=== PATIENT | male | born 1960 | race Caucasian/White ===

== ENCOUNTER 2017-04-04 02:33 | Inpatient (IN) | payer BC ==
[~2017-04-04] VITALS: Ht 160 cm; Wt 70.9 kg
[2017-04-04] MEDS ORDERED: ONDANSETRON INJ 2 MG/ML 2 ML VIAL IV STA (02:52)
[2017-04-04] MEDS ORDERED: SODIUM CHLORIDE 0.9% 1000ML 1,000 ML IV STA (02:52)
[2017-04-04] MEDS ORDERED: MoRPHine SULFATE 10 MG/ML CARP/VIAL IV STA (02:52)
--- NOTE | 2017-04-04 02:57 | EMERGENCY ROOM VISIT NOTE ---
History First contact with patient: 02:46 Chief Complaint: FLANK PAIN Stated Complaint: LWR RIGHT BACK PAIN,VOMITING,NAUSEA,FEELING WARM History of Present Illness The patient is a 56 year old male who presents to the Emergency Room with complaints of right flank pain and vomiting. The patient states that he had a sudden onset of right flank pain with radiation into the abdomen which started 2 hours ago and woke him up from sleep. He has had 3 episodes of vomiting. He denies urinary symptoms. He rates his discomfort a 10/10. He has not taken any medication for the discomfort. He denies any history of kidney stones. He denies changes in bowel movements, chest pain or shortness of breath. Review of Systems A complete 10 point review of systems was reviewed with the patient with pertinent positives and negatives as per history of present illness. All else were negative. Past Medical/Surgical History Medical Problems: (1) Ureteral calculus Social History Smoking Status: Never Smoker Physical Exam Vital Signs Date Time Temp Pulse Resp B/P (MAP) Pulse Ox O2 Delivery O2 Flow Rate FiO2 04/04/17 04:38 96 Nasal Cannula 2.0 04/04/17 04:36 90 04/04/17 04:20 72 20 109/64 94 Room Air 04/04/17 04:20 109/64 04/04/17 04:18 74 90 04/04/17 04:03 68 96 04/04/17 03:48 58 94 04/04/17 03:33 63 94 04/04/17 03:22 62 22 129/71 94 04/04/17 03:22 129/71 04/04/17 02:54 36.4 04/04/17 02:41 50 20 185/104 99 Room Air Physical Exam VITALS: Vitals are noted on the nurse's note and reviewed by myself. Vital signs stable. GENERAL: This is a 56-year-old male, in no acute distress, nondiaphoretic, well- developed well-nourished. HEART: Regular rate and rhythm without murmurs gallops or rubs. LUNGS: Clear to auscultation bilaterally without wheezes, rales or rhonchi. ABDOMEN: Positive bowel sounds x 4. Soft, tenderness in the right mid and lower abdomen. No guarding or rebound tenderness. MUSCULOSKELETAL: Right CVA tenderness. NEURO: Patient was alert and oriented to person place and time. Medical Decision & Procedures ER Provider Diagnostic Interpretation: CT ABDOMEN & PELVIS: Obstructing 4 mm stone in the mid right ureter causing mild upstream hydroureteronephrosis. Additional nonobstructing bilateral nephrolithiasis. No bowel obstruction, appendicitis, or diverticulitis. Radiologist: Guerita Godwin MD Laboratory Results 04/04/17 03:43 Red Blood Count 4.40, Mean Corpuscular Volume 90.2, Mean Corpuscular Hemoglobin 30.9, Mean Corpuscular Hemoglobin Concent 34.3, Mean Platelet Volume 9.6, Neutrophils (%) (Auto) 71.0, Lymphocytes (%) (Auto) 20.3, Monocytes (%) (Auto) 7.7, Eosinophils (%) (Auto) 0.5, Basophils (%) (Auto) 0.2, Neutrophils # (Auto) 6.19, Lymphocytes # (Auto) 1.77, Monocytes # (Auto) 0.67, Eosinophils # (Auto) 0.04, Basophils # (Auto) 0.02 04/04/17 03:43 Test 04/04/17 03:15 04/04/17 03:43 Urine Color DK YELLOW Urine Appearance CLEAR (CLEAR) Urine pH 7.5 (4.5-7.5) Urine Specific [place] 1.016 (1.000-1.030) Urine Protein NEG (NEG) Urine Glucose (UA) NEG (NEG) Urine Ketones NEG (NEG) Urine Occult Blood 2+ (NEG) Urine Nitrite NEG (NEG) Urine Bilirubin NEG (NEG) Urine Urobilinogen NEG (NEG) Urine Leukocyte Esterase NEG (NEG) Urine WBC (Auto) 0 /hpf (0-5) Urine RBC (Auto) 10-30 /hpf (0-4) Urine Hyaline Casts (Auto) 0 /lpf (0-5) Urine Epithelial Cells (Auto) 0-5 /lpf (0-5) Urine Bacteria (Auto) NEG (NEG) White Blood Count 8.72 K/uL (4.8-10.8) Red Blood Count 4.40 M/uL (4.7-6.1) Hemoglobin 13.6 g/dL (14.0-18.0) Hematocrit 39.7 % (42-52) Mean Corpuscular Volume 90.2 fL (80-100) Mean Corpuscular Hemoglobin 30.9 pg (25-34) Mean Corpuscular Hemoglobin Concent 34.3 g/dl (32-36) Platelet Count 173 K/uL (130-400) Mean Platelet Volume 9.6 fL (7.4-10.4) Neutrophils (%) (Auto) 71.0 % Lymphocytes (%) (Auto) 20.3 % Monocytes (%) (Auto) 7.7 % Eosinophils (%) (Auto) 0.5 % Basophils (%) (Auto) 0.2 % Neutrophils # (Auto) 6.19 K/uL (1.4-6.5) Lymphocytes # (Auto) 1.77 K/uL (1.2-3.4) Monocytes # (Auto) 0.67 K/uL (0.11-0.59) Eosinophils # (Auto) 0.04 K/uL (0-0.5) Basophils # (Auto) 0.02 K/uL (0-0.2) RDW Standard Deviation 43.4 fL (36.4-46.3) RDW Coefficient of Variation 13.2 % (11.5-14.5) Immature Granulocyte % (Auto) 0.3 % Immature Granulocyte # (Auto) 0.03 K/uL (0.00-0.02) Anion Gap 6.0 mmol/L (3-11) Est Creatinine Clear Calc Drug Dose 59.3 ml/min Estimated GFR () 76.8 Estimated GFR (Non- 66.3 BUN/Creatinine Ratio 10.1 (10-20) Calcium Level 7.5 mg/dl (8.5-10.1) Total Bilirubin 0.5 mg/dl (0.2-1) Aspartate Amino Transf (AST/SGOT) 14 U/L (15-37) Alanine Aminotransferase (ALT/SGPT) 31 U/L (12-78) Alkaline Phosphatase 65 U/L (45-117) Total Protein 6.0 gm/dl (6.4-8.2) Albumin 3.4 gm/dl (3.4-5.0) Globulin 2.6 gm/dl (2.5-4.0) Albumin/Globulin Ratio 1.3 (0.9-2) Medications Administered Medications (Trade) Dose Ordered Sig/Justus Route Start Time Stop Time Status Last Admin Dose Admin Sodium Chloride 1,000 ml @ 999 mls/hr Q1H1M STAT IV 04/04/17 02:52 04/04/17 03:52 DC 04/04/17 03:07 999 MLS/HR Ondansetron HCl (Zofran Inj) 4 mg NOW STAT IV 04/04/17 02:52 04/04/17 02:54 DC 04/04/17 03:13 4 MG Morphine Sulfate (MoRPHine SULFATE INJ) 6 mg NOW STAT IV 04/04/17 02:52 04/04/17 02:55 DC 04/04/17 03:10 6 MG Hydromorphone HCl (Dilaudid Inj) 1 mg NOW STAT IV 04/04/17 04:04 04/04/17 04:05 DC 04/04/17 04:10 1 MG ED Course The patient was evaluated as above. Labs were drawn and IV access was obtained. Patient was medicated with 6 mg morphine IV, 4 mg Zofran IV, and 1 L normal saline solution. Patient was having continued discomfort and was medicated with [address] of the abdomen and pelvis was performed and read by leah as above. Patient was reevaluated and findings were discussed. He is having continued pain rated 5/10. He was offered admission/observation for pain control vs discharge home. He does not feel comfortable going home due to his pain. Case was discussed with the [facility], Dr. Sommers. He agreed to evaluate the patient. Medical Decision Differential diagnosis includes kidney stone, pyelonephritis, gastroenteritis, among others. The patient is a 56-year-old female who presents today complaining of right flank pain and vomiting. Labs revealed no leukocytosis. Calcium is low at 7.5. Kidney functions within normal limits. Urinalysis was not suggestive of infection. CT shows a 4 mm obstructing stone. The patient was treated with morphine and Dilaudid and reported continued pain. The patient became slightly hypoxic after the dose of Dilaudid and I was not comfortable providing him with any further narcotic medication at this time. He was not given Toradol in case urologic intervention would be needed. The patient was offered admission for pain control versus discharge home with prescriptions for pain medication and he did not feel that he would be comfortable going home with the amount of pain that he is currently. For this reason, the patient was admitted to the [facility] service. Medication Reconcilliation Current Medication List: was personally reviewed by me Blood Pressure Screening Patient's blood pressure: Elevated blood pressure Blood pressure disposition: Elevated BP felt to be situational Impression Primary Impression: Right ureteral calculus Departure Information Referrals No Doctor, Assigned (PCP) Patient Instructions [facility]
[2017-04-04 03:27] LABS: URINE APPEARANCE CLEAR (CLEAR); URINE BILIRUBIN NEG (NEG); URINE COLOR DK YELLOW; URINE EPITHELIAL CELL AUTO 0-5 /lpf (0-5); URINE NITRITE NEG (NEG); URINE PH 7.5 (4.5-7.5); URINE SPECIFIC GRAVITY 1.016 (1.000-1.030); UROBILINOGEN NEG (NEG); ZZUR CULT IF INDIC CLEAN CATCH NO
[2017-04-04 03:41] LABS: MANUAL MICROSCOPIC REQUIRED? NO; REVIEW REQ? NO
[2017-04-04] MEDS ORDERED: HYDROmorphone INJ 1 MG/ML SYR IV STA (04:04)
[2017-04-04 04:05] LABS: BASO % 0.2 %; BASO ABS # 0.02 K/uL (0-0.2); COMPLETE YES; EOS % 0.5 %; HEMATOCRIT 39.7 % (42-52); IG% 0.3 %; LYMPH % 20.3 %; LYMPH ABS # 1.77 K/uL (1.2-3.4); MEAN CELL VOLUME 90.2 fL (80-100); MEAN CORPUSCULAR HEMOGLOBIN 30.9 pg (25-34); MEAN CORPUSCULAR HGB CONC 34.3 g/dl (32-36); MEAN PLATELET VOLUME 9.6 fL (7.4-10.4); MONO % 7.7 %; PLATELET COUNT 173 K/uL (130-400); WHITE BLOOD COUNT 8.72 K/uL (4.8-10.8)
[2017-04-04 04:24] LABS: BUN/CREATININE RATIO 10.1 (10-20); CALCIUM 7.5 mg/dl (8.5-10.1); CREATININE 1.2 mg/dl (0.60-1.40); POTASSIUM 3.4 mmol/L (3.5-5.1)
[2017-04-04 04:27] LABS: ALB/GLOB RATIO 1.3 (0.9-2)
[2017-04-04] MEDS ORDERED: ALUMINUM/MAGNESIUM/SIMETH (MAALOX MAX) 30 ML UDC PO PRN (06:15)
[2017-04-04] MEDS ORDERED: ONDANSETRON INJ 2 MG/ML 2 ML VIAL IV PRN (06:15)
[2017-04-04] MEDS ORDERED: MAGNESIUM HYDROXIDE SUSP 30 ML UDC PO PRN (06:15)
[2017-04-04] MEDS ORDERED: ACETAMINOPHEN 325 MG TAB PO PRN (06:15)
--- NOTE | 2017-04-04 06:22 | History and Physical ---
History & Physical Date & Time of Service: Apr 04, 2017 at 06:20 Chief Complaint: Lwr Right Back Pain,Vomiting,Nausea,Feeling Warm Primary Care Physician: Chencho Posey M.D. History of Present Illness Source: patient 56 y/o M Hx UC, GERD - developed acute and progressively severe R flank pain. Denies dysuria, fevers or rigors. On arrival to ER a CT was obtained revealing a 4mm obstructive stone in the mid R ureter with resultant hydroureteronephrosis. Past Medical/Surgical History 1) UC 2) GERD Family History Mother owing to CHF Social History Does not drink or smoke - retired from [employer] Smoking Status: Never Smoker Multi-Drug Resistant Organisms History of MDRO: No Allergies Uncoded Allergies: BEE STING (Allergy, Unknown, 02/29/04) CLINDAMYCIN (Allergy, Unknown, RASH/HIVES, 02/29/04) Review of Systems Constitutional: No fever, No chills, No sweats Eyes: No worsening of vision ENT: + hearing loss (chronic), No unusual epistaxis, No nasal symptoms Respiratory: No cough, No sputum, No wheezing Cardiovascular: No chest pain, No orthopnea, No PND Abdomen: + pain, No nausea, No vomiting Musculoskeletal: No joint pain, No muscle pain Genitourinary - Male: + hematuria, + problem reported (R flank pain), No dysuria Neurologic: No memory loss, No paralysis, No weakness Psychiatric: No depression symptoms Endocrine: No fatigue Hematologic / Lymphatic: No abnormal bleeding/bruising Integumentary: No rash Physical Exam Vital Signs Date Time Temp Pulse Resp B/P (MAP) Pulse Ox O2 Delivery O2 Flow Rate FiO2 04/04/17 04:38 96 Nasal Cannula 2.0 04/04/17 04:36 90 04/04/17 04:20 72 20 109/64 94 Room Air 04/04/17 04:20 109/64 04/04/17 04:18 74 90 04/04/17 04:03 68 96 04/04/17 03:48 58 94 04/04/17 03:33 63 94 04/04/17 03:22 62 22 129/71 94 04/04/17 03:22 129/71 04/04/17 02:54 36.4 04/04/17 02:41 50 20 185/104 99 Room Air General Appearance: WD/WN, no apparent distress Head: normocephalic Eyes: normal inspection ENT: normal ENT inspection, pharynx normal Neck: supple, no JVD Respiratory/Chest: chest non-tender, lungs clear, normal breath sounds, no respiratory distress, no accessory muscle use Cardiovascular: regular rate, rhythm, no edema, no gallop, no JVD, no murmur, normal peripheral pulses Abdomen/GI: normal bowel sounds, + pertinent finding (R lat abdominal and flank pain) Back: + right CVA tenderness Extremities/Musculoskelatal: normal inspection, no calf tenderness, normal capillary refill 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, no motor/sensory deficits, alert, normal mood/affect, normal reflexes, oriented x 3 Skin: normal color, warm/dry, no rash Diagnostics Laboratory Results Results Past 24 Hours Test 04/04/17 03:15 04/04/17 03:43 Range/Units Urine Color DK YELLOW Urine Appearance CLEAR CLEAR Urine pH 7.5 4.5-7.5 Urine Specific [place] 1.016 1.000-1.030 Urine Protein NEG NEG Urine Glucose (UA) NEG NEG Urine Ketones NEG NEG Urine Occult Blood 2+ NEG Urine Nitrite NEG NEG Urine Bilirubin NEG NEG Urine Urobilinogen NEG NEG Urine Leukocyte Esterase NEG NEG Urine WBC (Auto) 0 0-5 /hpf Urine RBC (Auto) 10-30 0-4 /hpf Urine Hyaline Casts (Auto) 0 0-5 /lpf Urine Epithelial Cells (Auto) 0-5 0-5 /lpf Urine Bacteria (Auto) NEG NEG White Blood Count 8.72 4.8-10.8 K/uL Red Blood Count 4.40 4.7-6.1 M/uL Hemoglobin 13.6 14.0-18.0 g/dL Hematocrit 39.7 42-52 % Mean Corpuscular Volume 90.2 80-100 fL Mean Corpuscular Hemoglobin 30.9 25-34 pg Mean Corpuscular Hemoglobin Concent 34.3 32-36 g/dl Platelet Count 173 130-400 K/uL Mean Platelet Volume 9.6 7.4-10.4 fL Neutrophils (%) (Auto) 71.0 % Lymphocytes (%) (Auto) 20.3 % Monocytes (%) (Auto) 7.7 % Eosinophils (%) (Auto) 0.5 % Basophils (%) (Auto) 0.2 % Neutrophils # (Auto) 6.19 1.4-6.5 K/uL Lymphocytes # (Auto) 1.77 1.2-3.4 K/uL Monocytes # (Auto) 0.67 0.11-0.59 K/uL Eosinophils # (Auto) 0.04 0-0.5 K/uL Basophils # (Auto) 0.02 0-0.2 K/uL RDW Standard Deviation 43.4 36.4-46.3 fL RDW Coefficient of Variation 13.2 11.5-14.5 % Immature Granulocyte % (Auto) 0.3 % Immature Granulocyte # (Auto) 0.03 0.00-0.02 K/uL Sodium Level 146 136-145 mmol/L Potassium Level 3.4 3.5-5.1 mmol/L Chloride Level 116 98-107 mmol/L Carbon Dioxide Level 24 21-32 mmol/L Anion Gap 6.0 3-11 mmol/L Blood Urea Nitrogen 12 7-18 mg/dl Creatinine 1.20 0.60-1.40 mg/dl Est Creatinine Clear Calc Drug Dose 59.3 ml/min Estimated GFR () 76.8 Estimated GFR (Non- 66.3 BUN/Creatinine Ratio 10.1 10-20 Random Glucose 121 70-99 mg/dl Calcium Level 7.5 8.5-10.1 mg/dl Total Bilirubin 0.5 0.2-1 mg/dl Aspartate Amino Transf (AST/SGOT) 14 15-37 U/L Alanine Aminotransferase (ALT/SGPT) 31 12-78 U/L Alkaline Phosphatase 65 45-117 U/L Total Protein 6.0 6.4-8.2 gm/dl Albumin 3.4 3.4-5.0 gm/dl Globulin 2.6 2.5-4.0 gm/dl Albumin/Globulin Ratio 1.3 0.9-2 Diagnostic Radiology Obstructing 4mm stone mid R ureter - resultant mild hydroureteronephrosis Impression Assessment and Plan 56 y/o M Hx UC, GERD - developed acute and progressively severe R flank pain. Denies dysuria, fevers or rigors. On arrival to ER a CT was obtained revealing a 4mm obstructive stone in the mid R ureter with resultant hydroureteronephrosis. 1) Obstructing calculus - pain control, IVF, urology consult 2) UC - can resume Sulfasalazine following urology eval if no intervention is to take place 3) GERD - cont Omeprazole Full code - SCDs Total time for this admit including review of labs, meds, imaging - discussion with pt and ER attending - 33 min VTE Prophylaxis VTE Risk Assessment Done? Y/N: Yes Risk Level: Low
[2017-04-04] MEDS ORDERED: IV FLUIDS COMPLETED PRN (07:15)
--- NOTE | 2017-04-04 07:37 | DIAGNOSTIC IMAGING REPORT ---
ABDOMEN AND PELVIS CT WITHOUT CONTRAST CT DOSE: 727.53 mGy.cm HISTORY: right flank pain, vomiting TECHNIQUE: Multiaxial CT images of the abdomen and pelvis were performed without the use of intravenous and oral contrast according to the standard department stone protocol. A dose lowering technique was utilized adhering to the principles of ALARA. COMPARISON STUDY: Abdominal ultrasound 11/15/2010. FINDINGS: A few groundglass densities at the lung bases which favor mild dependent change. No fractures within the visualized osseous structures. Small hiatus hernia. Punctate stone within the gallbladder. Mild hepatic steatosis. The unenhanced spleen, adrenal glands, pancreas are unremarkable. No retroperitoneal lymphadenopathy. There are punctate stones within the lower poles of the kidneys. Mild right hydronephrosis secondary to an obstructing stone within the proximal to mid right ureter best seen on image 98. This measures 4 mm. This is at the L3-L4 disc space level. Small amount of hyperdense material within the bladder posteriorly. This may represent tiny stones. The bladder is mildly distended. Colonic diverticulosis. No definite bowel wall thickening or obstruction. Normal appendix. IMPRESSION: 1. Mild right hydronephrosis secondary to a 4 mm obstructing stone within the proximal to mid right ureter. 2. Bilateral nephrolithiasis. 3. Cholelithiasis. 4. Suspect a few punctate stones layering within the bladder. 5. Additional findings as described above. Electronically signed by: Devyn Morillo M.D. 04/04/2017 7:36 AM Dictated Date/Time: 04/04/2017 7:29 AM
[2017-04-04 07:47] VITALS: BP 130/80; PULSE 60; TEMP 36.7; O2SAT 96; Ht 160 cm; Wt 70.9 kg
[2017-04-04] MEDS ORDERED: D5NSS + 20MEQ KCL 1,000 ML IV SCH (08:15)
[2017-04-04] MEDS: KETOROLAC TROMETHAMINE 30 MG/ML VIAL IV PRN ×2 (08:24→21:00)
[2017-04-04] MEDS: PANTOprazole SOD 40 MG TAB PO SCH (08:33)
[2017-04-04] MEDS: TAMSULOSIN HCL 0.4 MG CAP PO SCH (08:33)
[2017-04-04] MEDS: HYDROmorphone INJ 1 MG/ML SYR IV PRN (12:28)
[2017-04-04 15:00] VITALS: BP 104/64; PULSE 61; TEMP 36.5; O2SAT 96
--- NOTE | 2017-04-04 15:19 | Progress Note ---
Progress Note Date of Service Apr 04, 2017. Progress Note Pt scheduled for cystoscopy, R ureteroscopy and laser lithotripsy tomorrow. Pt with h/o UC and GERD. Risks/benefits and anesthesia plan explained. All questions answered. Consent obtained.
[2017-04-04] MEDS: SODIUM CHLORIDE 0.9% 1000ML 1,000 ML IV SCH ×3 (15:42→23:02)
--- NOTE | 2017-04-04 16:39 | Urology Consultation ---
History General Date of Service: Apr 04, 2017. Chief Complaint: right renal colic Primary Care Physician: Chencho Posey M.D. Pt seen a urologist before?: No History of Present Illness I am asked by Dr Wilkes to evaluate and treat patient for right obstructing ureteral stone. He is having severe pain with nausea overnight. He came to ER and even with iv pain meds was still is severe pain. CT showed 4-5mm right upper ureteral stone with hydro above it. U/A normal, cr normal. Pain now a 6/ 10 both right flank and right mid abdomen. Pt has not had stones in past. Imaging Imaging: CT Laboratory Results Past 24 Hours Test 04/04/17 03:15 04/04/17 03:43 Range/Units Urine Color DK YELLOW Urine Appearance CLEAR CLEAR Urine pH 7.5 4.5-7.5 Urine Specific [place] 1.016 1.000-1.030 Urine Protein NEG NEG Urine Glucose (UA) NEG NEG Urine Ketones NEG NEG Urine Occult Blood 2+ NEG Urine Nitrite NEG NEG Urine Bilirubin NEG NEG Urine Urobilinogen NEG NEG Urine Leukocyte Esterase NEG NEG Urine WBC (Auto) 0 0-5 /hpf Urine RBC (Auto) 10-30 0-4 /hpf Urine Hyaline Casts (Auto) 0 0-5 /lpf Urine Epithelial Cells (Auto) 0-5 0-5 /lpf Urine Bacteria (Auto) NEG NEG White Blood Count 8.72 4.8-10.8 K/uL Red Blood Count 4.40 4.7-6.1 M/uL Hemoglobin 13.6 14.0-18.0 g/dL Hematocrit 39.7 42-52 % Mean Corpuscular Volume 90.2 80-100 fL Mean Corpuscular Hemoglobin 30.9 25-34 pg Mean Corpuscular Hemoglobin Concent 34.3 32-36 g/dl Platelet Count 173 130-400 K/uL Mean Platelet Volume 9.6 7.4-10.4 fL Neutrophils (%) (Auto) 71.0 % Lymphocytes (%) (Auto) 20.3 % Monocytes (%) (Auto) 7.7 % Eosinophils (%) (Auto) 0.5 % Basophils (%) (Auto) 0.2 % Neutrophils # (Auto) 6.19 1.4-6.5 K/uL Lymphocytes # (Auto) 1.77 1.2-3.4 K/uL Monocytes # (Auto) 0.67 0.11-0.59 K/uL Eosinophils # (Auto) 0.04 0-0.5 K/uL Basophils # (Auto) 0.02 0-0.2 K/uL RDW Standard Deviation 43.4 36.4-46.3 fL RDW Coefficient of Variation 13.2 11.5-14.5 % Immature Granulocyte % (Auto) 0.3 % Immature Granulocyte # (Auto) 0.03 0.00-0.02 K/uL Sodium Level 146 136-145 mmol/L Potassium Level 3.4 3.5-5.1 mmol/L Chloride Level 116 98-107 mmol/L Carbon Dioxide Level 24 21-32 mmol/L Anion Gap 6.0 3-11 mmol/L Blood Urea Nitrogen 12 7-18 mg/dl Creatinine 1.20 0.60-1.40 mg/dl Est Creatinine Clear Calc Drug Dose 59.3 ml/min Estimated GFR () 76.8 Estimated GFR (Non- 66.3 BUN/Creatinine Ratio 10.1 10-20 Random Glucose 121 70-99 mg/dl Calcium Level 7.5 8.5-10.1 mg/dl Total Bilirubin 0.5 0.2-1 mg/dl Aspartate Amino Transf (AST/SGOT) 14 15-37 U/L Alanine Aminotransferase (ALT/SGPT) 31 12-78 U/L Alkaline Phosphatase 65 45-117 U/L Total Protein 6.0 6.4-8.2 gm/dl Albumin 3.4 3.4-5.0 gm/dl Globulin 2.6 2.5-4.0 gm/dl Albumin/Globulin Ratio 1.3 0.9-2 Labs were reviewed and are within normal limits unless listed below. Labs are available in the chart and at [facility] Problem List Medical Problems: (1) Right ureteral calculus Status: Acute Past History GERD Past Surgical History: orthopedic surgery (knee was drained, right), tonsillectomy Family History no one has stones in family Social History Hx Tobacco Use In Past Year?: No Smoking: non-smoker Alcohol: never Drug use: none Marital status: Housing status: lives with family Occupation status: retired History of MDRO No Allergies Uncoded Allergies: BEE STING (Allergy, Unknown, 02/29/04) CLINDAMYCIN (Allergy, Unknown, RASH/HIVES, 02/29/04) Medications Home Medications: Home Meds and Scripts Medications Dose Route/Sig Max Daily Dose Days Date Category Inpatient Medications: Current Inpatient Medications Medications (Trade) Dose Ordered Sig/Justus Route Start Time Stop Time Status Last Admin Dose Admin Acetaminophen (Tylenol Tab) 650 mg Q4H PRN PO 04/04/17 06:15 05/04/17 06:14 Al Hydrox/Mg Hydrox/Simethicone (Maalox Max Susp) 15 ml Q4H PRN PO 04/04/17 06:15 05/04/17 06:14 Magnesium Hydroxide (Milk Of Magnesia Susp) 30 ml Q6H PRN PO 04/04/17 06:15 05/04/17 06:14 Ondansetron HCl (Zofran Inj) 4 mg Q6H PRN IV 04/04/17 06:15 05/04/17 06:14 Hydromorphone HCl (Dilaudid Inj) 1 mg Q3H PRN IV 04/04/17 06:15 04/18/17 06:14 04/04/17 12:28 1 MG Tamsulosin HCl (Flomax Cap) 0.4 mg QAM PO 04/04/17 09:00 05/04/17 08:59 04/04/17 08:33 0.4 MG Pantoprazole Sodium (Protonix Tab) 40 mg QAM PO 04/04/17 09:00 05/04/17 08:59 04/04/17 08:33 40 MG Miscellaneous (Iv Fluids Completed) 1 ea PRN PRN N/A 04/04/17 07:15 04/04/18 07:14 Ketorolac Tromethamine (Toradol Inj) 30 mg Q8H PRN IV 04/04/17 07:30 04/09/17 07:29 04/04/17 08:24 30 MG Sodium Chloride 1,000 ml @ 250 mls/hr Q4H IV 04/04/17 15:15 05/04/17 15:14 04/04/17 15:42 250 MLS/HR Review of Systems Review of Systems Constitutional: + frequent headaches (migraines), No fever, No chills Neurological: No dizzy, No seizures Endocrine: No too cold, No tired/sluggish Gastrointestinal: + abdominal pain, + indigestion, + nausea, No constipation, No diarrhea Cardiovascular: No chest pain, No palpitations Respiratory: No shortness of breath Male : No frequent urination, No painful urination, No urinary retention, No weak stream, No blood in urine, No leaking urine, No infections Physical Exam Vital Signs: Vital Signs Past 12 Hours Date Time Temp Pulse Resp B/P (MAP) Pulse Ox O2 Delivery O2 Flow Rate FiO2 04/04/17 15:00 36.5 61 20 104/64 (77) 96 Room Air 04/04/17 07:47 36.7 60 18 130/80 96 Room Air 04/04/17 07:35 72 20 116/71 98 04/04/17 06:25 65 96 04/04/17 06:10 63 96 04/04/17 05:55 65 95 04/04/17 05:40 62 97 04/04/17 05:25 63 97 04/04/17 05:10 62 98 04/04/17 04:55 70 98 04/04/17 04:40 66 97 04/04/17 04:38 96 Nasal Cannula 2.0 04/04/17 04:36 90 Physical Exam: General Appearance: WD/WN, no apparent distress, + thin Eyes: bilateral eyes normal inspection ENT: hearing grossly normal Neck: supple, no adenopathy, no JVD, trachea midline Respiratory/Chest: normal breath sounds, no respiratory distress, no accessory muscle use Cardiovascular: regular rate, rhythm, no edema, no JVD Gastrointestinal: Abdomen: normal abdomen Incision: normal incision Bladder: normal bladder Renal: normal renal, cva tenderness (only low on right) Hernia: absent hernia Liver: normal liver Extremities: non-tender, normal inspection, no pedal edema, no calf tenderness Neurologic/Psychiatric: alert, normal mood/affect, oriented x 3 Skin: normal color, warm/dry, no rash Lymphatic: no adenopathy Assessment & Plan Assessment & Plan right ureteral stone in upper ureter I reviewed ct report and digital images I think the stone will cause at least 2 more severe colic episodes to pass the iliac vessels and the UVJ I think he will bounce back to ER for parenteral narcotics to get thru these episodes of colic. I suggest instead he have ureteroscopy with laser litho tomorrow. He will think about It I described cysto right ureteroscopy laser lithotripsy basket stone extraction and stent under general anesthesia. I described risk and benefit. NPO after midnight except a cup of black coffee no cream no sugar at 6am to try to avoid headache later in the day.
--- NOTE | 2017-04-04 17:04 | Progress Note ---
Subjective Date of Service: Apr 04, 2017. Subjective Patient was seen in the room in the presence of his . Nurse delimer was preop being him for possible cystoscopy on 04/05. The patient was slightly agitated and upset as he stated no one has discussed the procedure with him. The patient was aware that Dr. Baker was not going to see until after 4 PM and this was before 4 PM. I attempted to calm the patient down described the procedure to him and have him understand that things could be canceled if he would pass his stone (only 4 mm and likely may pass on its own) despite this fact the patient seemed unpleased with those attempts at calming him down. He states his pain is much better he's not having any hematuria fevers or chills Problem List Medical Problems: (1) Right ureteral calculus Status: Acute Review of Systems ROS: well nourished well developed No double vision blurry vision No problems with speech or swallowing No palpitations, chest pain or pressure No Wheezing or breathing issues No abdominal pain nausea vomiting diarrhea changes in appetite or weight No burning urine urine frequency or changes in color No focal joint pain or muscle pain No skin rashes or oral lesions No unusual bruising or bleeding No focused back pain or numbness or loss of strength No changes in memory or confusion Objective Vital Signs Date Time Temp Pulse Resp B/P (MAP) Pulse Ox O2 Delivery O2 Flow Rate FiO2 04/04/17 15:00 36.5 61 20 104/64 (77) 96 Room Air 04/04/17 07:47 36.7 60 18 130/80 96 Room Air 04/04/17 07:35 72 20 116/71 98 04/04/17 06:25 65 96 04/04/17 06:10 63 96 04/04/17 05:55 65 95 04/04/17 05:40 62 97 04/04/17 05:25 63 97 04/04/17 05:10 62 98 04/04/17 04:55 70 98 04/04/17 04:40 66 97 04/04/17 04:38 96 Nasal Cannula 2.0 04/04/17 04:36 90 04/04/17 04:25 72 92 04/04/17 04:20 72 20 109/64 94 Room Air 04/04/17 04:20 109/64 04/04/17 04:18 74 90 04/04/17 04:03 68 96 04/04/17 03:48 58 94 04/04/17 03:33 63 94 04/04/17 03:22 62 22 129/71 94 04/04/17 03:22 129/71 04/04/17 02:54 36.4 04/04/17 02:41 50 20 185/104 99 Room Air Physical Exam General Appearance: WD/WN, no apparent distress, + pertinent finding (the only distress his emotional) Eyes: PERRL, EOMI Neck: supple, no JVD Respiratory/Chest: chest non-tender, lungs clear, normal breath sounds Cardiovascular: regular rate, rhythm, no murmur Abdomen: soft Neurologic/Psychiatric: alert, oriented x 3 Laboratory Results Last 24 Hours Test 04/04/17 03:15 04/04/17 03:43 Urine Color DK YELLOW Urine Appearance CLEAR Urine pH 7.5 Urine Specific Morehouse 1.016 Urine Protein NEG Urine Glucose (UA) NEG Urine Ketones NEG Urine Occult Blood 2+ Urine Nitrite NEG Urine Bilirubin NEG Urine Urobilinogen NEG Urine Leukocyte Esterase NEG Urine WBC (Auto) 0 /hpf Urine RBC (Auto) 10-30 /hpf Urine Hyaline Casts (Auto) 0 /lpf Urine Epithelial Cells (Auto) 0-5 /lpf Urine Bacteria (Auto) NEG White Blood Count 8.72 K/uL Red Blood Count 4.40 M/uL Hemoglobin 13.6 g/dL Hematocrit 39.7 % Mean Corpuscular Volume 90.2 fL Mean Corpuscular Hemoglobin 30.9 pg Mean Corpuscular Hemoglobin Concent 34.3 g/dl Platelet Count 173 K/uL Mean Platelet Volume 9.6 fL Neutrophils (%) (Auto) 71.0 % Lymphocytes (%) (Auto) 20.3 % Monocytes (%) (Auto) 7.7 % Eosinophils (%) (Auto) 0.5 % Basophils (%) (Auto) 0.2 % Neutrophils # (Auto) 6.19 K/uL Lymphocytes # (Auto) 1.77 K/uL Monocytes # (Auto) 0.67 K/uL Eosinophils # (Auto) 0.04 K/uL Basophils # (Auto) 0.02 K/uL RDW Standard Deviation 43.4 fL RDW Coefficient of Variation 13.2 % Immature Granulocyte % (Auto) 0.3 % Immature Granulocyte # (Auto) 0.03 K/uL Sodium Level 146 mmol/L Potassium Level 3.4 mmol/L Chloride Level 116 mmol/L Carbon Dioxide Level 24 mmol/L Anion Gap 6.0 mmol/L Blood Urea Nitrogen 12 mg/dl Creatinine 1.20 mg/dl Est Creatinine Clear Calc Drug Dose 59.3 ml/min Estimated GFR () 76.8 Estimated GFR (Non- 66.3 BUN/Creatinine Ratio 10.1 Random Glucose 121 mg/dl Calcium Level 7.5 mg/dl Total Bilirubin 0.5 mg/dl Aspartate Amino Transf (AST/SGOT) 14 U/L Alanine Aminotransferase (ALT/SGPT) 31 U/L Alkaline Phosphatase 65 U/L Total Protein 6.0 gm/dl Albumin 3.4 gm/dl Globulin 2.6 gm/dl Albumin/Globulin Ratio 1.3 Assessment and Plan 56 y/o M here with 4 mm obstructive right ureteral stone with a Hx UC, GERD Obstructing calculus - pain control with nonsteroidals and opiates, aggressive IVF, straining urine awaiting urology consult UC - has had no recent flares so can resume Sulfasalazine following urology eval if no intervention is to take place GERD -asymptomatic while on Omeprazole Full code - SCDs
[2017-04-04 23:13] VITALS: BP_SYST 102; BP_SYST 91; BP_DIAS 50; BP_DIAS 58; PULSE 64; TEMP 37; O2SAT 94
[2017-04-05] MEDS: HYDROmorphone INJ 1 MG/ML SYR IV PRN (00:54)
[2017-04-05] MEDS: SODIUM CHLORIDE 0.9% 1000ML 1,000 ML IV SCH ×2 (02:38→07:20)
[2017-04-05 07:24] VITALS: BP 110/67; PULSE 60; TEMP 37; O2SAT 97
--- NOTE | 2017-04-05 08:09 | Progress Note ---
Subjective Date of Service: Apr 05, 2017. Subjective Pt evaluation today including: conversation w/ patient Voiding: no voiding problems patient had pain all night right flank. He is agreeable to go to surgery later today. Had some back coffee at 7am. Problem List Medical Problems: (1) Right ureteral calculus Status: Acute Review of Systems Constitutional: No fever, No chills Cardiac: No chest pain, No palpitations Abdomen: + nausea Male : No dysuria, No urinary frequency Objective Vital Signs Date Time Temp Pulse Resp B/P (MAP) Pulse Ox O2 Delivery O2 Flow Rate FiO2 04/05/17 07:24 37.0 60 16 110/67 (81) 97 Room Air 04/05/17 00:30 Room Air 04/04/17 23:13 37.0 64 16 91/50 (64) 94 Room Air 102/58 (73) 04/04/17 16:00 Room Air 04/04/17 15:00 36.5 61 20 104/64 (77) 96 Room Air Physical Exam General Appearance: WD/WN, + mild distress ENT: hearing grossly normal Respiratory/Chest: no respiratory distress Neurologic/Psychiatric: normal mood/affect, oriented x 3 Assessment and Plan right upper ureteral stone plan cysto right ureteroscopy laser lithotripsy basket stone extraction stent ancef system consultant.
--- NOTE | 2017-04-05 08:20 | Hospitalist Progress Note ---
Hospitalist Progress Note Date of Service Apr 05, 2017. Subjective Pt evaluation today including: conversation w/ patient, conversation w/ family , physical exam, chart review, lab review, review of studies Pain: Moderate, R flank, RLQ PO Intake: NPO The patient was seen and examined this morning. Pt reports his pain is much better currently than it was when he came in. He is awaiting urological procedure today. His is present at bedside. He is very concerned about full admit vs observation status for insurance purposes. He denies any fevers, chills or sweats. Constitutional: No fever, No chills, No sweats ENT: No nasal symptoms, No trouble swallowing Respiratory: No shortness of breath, No dyspnea on exertion, No dyspnea at rest Cardiovascular: No chest pain, No palpitations Abdomen: + pain (RLQ, mild-moderate), No nausea, No vomiting, No diarrhea, No constipation Musculoskeletal: No joint pain, No muscle pain, No swelling Male : No dysuria, No urinary frequency, No hematuria Neurologic: No weakness, No numbness/tingling Endo: No fatigue Skin: No rash, No itch Objective Vital Signs Date Time Temp Pulse Resp B/P (MAP) Pulse Ox O2 Delivery O2 Flow Rate FiO2 04/05/17 07:24 37.0 60 16 110/67 (81) 97 Room Air 04/05/17 00:30 Room Air 04/04/17 23:13 37.0 64 16 91/50 (64) 94 Room Air 102/58 (73) 04/04/17 16:00 Room Air 04/04/17 15:00 36.5 61 20 104/64 (77) 96 Room Air Physical Exam General Appearance: WD/WN, no apparent distress Eyes: PERRL, EOMI ENT: hearing grossly normal, pharynx normal Neck: supple, no JVD Respiratory/Chest: lungs clear, normal breath sounds, no accessory muscle use Cardiovascular: regular rate, rhythm, no murmur Abdomen: normal bowel sounds, non tender, soft Extremities: non-tender, no pedal edema, no calf tenderness Neurologic/Psychiatric: alert, normal mood/affect, oriented x 3 Skin: normal color, warm/dry Assessment and Plan 56 yo M with PMHx of ulcerative colitis, multiple R knee surgeries, GERD, who presents with a 4 mm obstructive R ureteral stone Obstructing R ureteral stone - Urology on board: plan cysto right ureteroscopy laser lithotripsy basket stone extraction stent today - pain control with nonsteroidals and opiates, aggressive IVF, - straining all urine - Ancef on board prior to procedure Ulcerative Colitis - Holding Sulfasalazine and will resume after urology procedure as above. - No flares for many years - Follows with Dr. Wiseman as an outpatient GERD -asymptomatic while on Omeprazole Full code - SCDs CODE STATUS: FULL CODE Disposition: Discharge to home likely within 24 hours after urological procedure.
[2017-04-05] MEDS: KETOROLAC TROMETHAMINE 30 MG/ML VIAL IV PRN (08:51)
[2017-04-05] MEDS: TAMSULOSIN HCL 0.4 MG CAP PO SCH (08:58)
[2017-04-05] MEDS: PANTOprazole SOD 40 MG TAB PO SCH (08:58)
[2017-04-05] MEDS ORDERED: CEFAZOLIN IV 2,000 MG/60 ML D5W IV SCH (09:00)
[2017-04-05] MEDS ORDERED: ONDANSETRON INJ 2 MG/ML 2 ML VIAL ONE (11:59)
[2017-04-05] MEDS ORDERED: LIDOCAINE HCL 2% 2 ML VIAL (20MG/ML) ONE (11:59)
[2017-04-05] MEDS ORDERED: PROPOFOL IV EMULSION 10 MG/ML 20 ML VIAL IV ONE (11:59)
[2017-04-05] MEDS ORDERED: DEXAMETHASONE SOD INJ 4 MG/ML VIAL ONE (11:59)
[2017-04-05] MEDS ORDERED: FENTANYL CITRATE INJ 50 MCG/1 ML 2 ML VIAL ONE (12:00)
[2017-04-05] MEDS ORDERED: MIDAZOLAM HCL 1 MG/ML 2ML VIAL ONE (12:00)
[2017-04-05] MEDS ORDERED: BELLADONNA/OPIUM SUPP 60 MG SUPP PR ONE (15:21)
[2017-04-05] MEDS ORDERED: KETOROLAC TROMETHAMINE 30 MG/ML VIAL ONE (15:24)
[2017-04-05] MEDS ORDERED: FENTANYL CITRATE INJ 50 MCG/1 ML 2 ML VIAL IV PRN (15:30)
[2017-04-05] MEDS ORDERED: ONDANSETRON INJ 2 MG/ML 2 ML VIAL IV PRN (15:30)
[2017-04-05] MEDS ORDERED: EpHEDrine SULFATE INJ 50 MG/ML AMP IV PRN (15:30)
[2017-04-05] MEDS ORDERED: ATROPINE SULFATE 0.1 MG/ML 5ML SYR IV PRN (15:30)
--- NOTE | 2017-04-05 15:35 | [facility] Operative Report ---
Operative Report Operative Date Apr 05, 2017. Pre-Operative Diagnosis Ureteral Calculus Post-Operative Diagnosis Ureteral Calculus Procedure(s) Performed Cystoscopy, Right Ureteroscopy, Laser Lithotripsy, Basket Stone Extraction Surgeon Dr. Baker Mail Carriers Supervisor Surgeon(s) none Estimated Blood Loss 2 mL Findings small stone in bladder , medium stone in right kidney Fluids 600mL Specimens A: right stone for chemical analysis Drains none Anesthesia LMA Complication(s) None Disposition Recovery Room / PACU Indications symptomatic 4mm right upper ureteral stone, Description of Procedure Patient was sedated and placed in lithotomy position. His genitals were prepped and draped in sterile fashion. Time out held with team. I placed a 21 fr rigid cystoscope to bladder. The urethra is unremarkable. The prostate is medium. The UOs are normal and open shape. The left effluxes more and more vigorously than right. There is a small 2mm srivastava crystalline stone in the bladder. I rinsed this out. It is much smaller than the stone seen in ureter on ct scan. I placed a stiff wire up right ureter easily. I did ot see a stone on fluoro. I then placed a flexible ureteroscope up the right ureter along side the wire under vision. he has a slight narrowing or ureter pale, thin like a mild stricture in the upper ureter. I see a stone in the mid right kidney. I used a laser to crack it in half and removed each piece with a 2.4 fr zero tip stone basket. As case was short and atraumatic I elected not to leave a stent. I left bladder empty and concluded case. I placed a belladonna and opium suppository for post-op pain. He transferred to recovery under my escort, in stable condition. Plan: Home today Pyridium for dysuria x 3 days flomax daily oral pain meds as needed ASA 2 clean contaminated case 8 seconds fluoro ancef antibiotic director electronics I attest to the content of the Intraoperative Record and any orders documented therein. Any exceptions are noted below.
[2017-04-05] MEDS ORDERED: PHENAZOPYRIDINE HCL 200 MG TAB PO PRN (15:45)
--- NOTE | 2017-04-05 15:56 | DIAGNOSTIC IMAGING REPORT ---
INTRAOPERATIVE SUPINE ABDOMEN SINGLE VIEW CLINICAL HISTORY: RT LASER/LITHO AND STENT COMPARISON STUDY: CT scan dated 04/04/2017 FINDINGS: A single fluoroscopic spot images provided for interpretation. 8 seconds of fluoroscopic time was utilized. There is a right-sided ureteral catheter and ureteroscope visualized. IMPRESSION: Single fluoroscopic spot image demonstrating a right-sided ureteroscope and right ureteral guidewire Electronically signed by: Gamal Lux M.D. 04/05/2017 3:54 PM Dictated Date/Time: 04/05/2017 3:40 PM
[2017-04-05] MEDS ORDERED: PHEN-1043 PO (16:01)
[2017-04-05] MEDS ORDERED: FLM4 PO (16:01)
--- NOTE | 2017-04-05 16:01 | Discharge Instructions ---
Discharge Instructions Date of Service Apr 05, 2017. Admission Reason for Admission: Ureteral Calculus Discharge Discharge Diagnosis / Problem: R ureteral stone Discharge Goals Goal(s): Decrease discomfort, Improve function, Increase independence Activity Recommendations Activity Limitations: resume your previous activity Lifting Limitations: no more than 25 pounds Exercise/Sports Limitations: rest today, gradually increase as tolerated May Resume Sexual Activity: when tolerated Shower/Bathe: no limitations Driving or Machine Use: resume 1 day after discharge . Instructions / Follow-Up Instructions / Follow-Up You were admitted to [facility] with R flank pain and diagnosed with R ureteral stone. During your stay here you were treated with intravenous pain medication, fluids and other supportive care. You underwent cystoscopy, ureteroscopy, laser lithotripsy and R ureteral stone removal on 04/[address] Baker. Medications: Continue taking all medications as prescribed. You have been given a prescription for Flomax 0.4 mg daily, for 7 days to help urine flow without difficulty. You have been given a prescription for Pyridium 200 mg three times daily for 3 days. NOTE: this may cause orange colored urine, sweat, or tears! Do not take this for more than 3 days. Take tylenol 500 mg every 4 hours as needed for pain, do not take more than 4grams within a 24 hour period. Appointments: Follow up with your Primary Care Provider within 1 week. Follow up with urology within 1-2 week or on an as needed basis with Dr. Baker. Please contact their office for an appointment to be scheduled. Current Hospital Diet Patient's current hospital diet: Regular Diet Discharge Diet Recommended Diet: Regular Diet Procedures Procedures Performed: Cystoscopy, Right Ureteroscopy, Laser Lithotripsy, Basket Stone Extraction Pending Studies Studies pending at discharge: no Medical Emergencies . Who to Call and When: Medical Emergencies: If at any time you feel your situation is an emergency, please call 911 immediately. . Non-Emergent Contact Non-Emergency issues call your: Primary Care Provider, Urologist Call Non-Emergent contact if: you have a fever, your pain is not controlled, your pain is worsening, your pain is unusual for you, your pain is concerning you, you have any medication questions . Past History Medical & Surgical History: (1) R ureteral stone, hydronephrosis . "Provider Documentation" section prepared by Charisma G. Filipowicz. . VTE Core Measure Inpt VTE Proph given/why not?: Sepideh Guerra, MIKE's
--- NOTE | 2017-04-05 16:04 | Anesthesiology Progress Note ---
Anesthesia Post Op Note Date & Time Apr 05, 2017 at 16:04 Vital Signs Pain Intensity: 0 Vital Signs Past 12 Hours Date Time Temp Pulse Resp B/P (MAP) Pulse Ox O2 Delivery O2 Flow Rate FiO2 04/05/17 15:43 36.4 68 18 116/62 98 Oxymask 10 04/05/17 08:10 Room Air 04/05/17 07:24 37.0 60 16 110/67 (81) 97 Room Air Notes Mental Status: alert / awake / arousable, participated in evaluation Pt Amnestic to Procedure: Yes Nausea / Vomiting: adequately controlled Pain: adequately controlled Airway Patency, RR, SpO2: stable & adequate BP & HR: stable & adequate Hydration State: stable & adequate Anesthetic Complications: no major complications apparent
--- NOTE | 2017-04-05 16:07 | Discharge Summary ---
Discharge Summary Date of Service Apr 05, 2017. (Ursula Willoughby PA-C) Discharge Summary Admission Date: Apr 05, 2017 at 09:41 Discharge Date: Apr 05, 2017 Discharge Disposition: Home Principal Diagnosis: R ureteral stone Problems/Secondary Diagnoses: Ulcerative Colitis GERD Procedures: 04/05/17 Cystoscopy, Right Ureteroscopy, Laser Lithotripsy, Basket Stone Extraction ABDOMEN AND PELVIS CT WITHOUT CONTRAST CT DOSE: 727.53 mGy.cm HISTORY: right flank pain, vomiting TECHNIQUE: Multiaxial CT images of the abdomen and pelvis were performed without the use of intravenous and oral contrast according to the standard department stone protocol. A dose lowering technique was utilized adhering to the principles of ALARA. COMPARISON STUDY: Abdominal ultrasound 11/15/2010. FINDINGS: A few groundglass densities at the lung bases which favor mild dependent change. No fractures within the visualized osseous structures. Small hiatus hernia. Punctate stone within the gallbladder. Mild hepatic steatosis. The unenhanced spleen, adrenal glands, pancreas are unremarkable. No retroperitoneal lymphadenopathy. There are punctate stones within the lower poles of the kidneys. Mild right hydronephrosis secondary to an obstructing stone within the proximal to mid right ureter best seen on image 98. This measures 4 mm. This is at the L3-L4 disc space level. Small amount of hyperdense material within the bladder posteriorly. This may represent tiny stones. The bladder is mildly distended. Colonic diverticulosis. No definite bowel wall thickening or obstruction. Normal appendix. IMPRESSION: 1. Mild right hydronephrosis secondary to a 4 mm obstructing stone within the proximal to mid right ureter. 2. Bilateral nephrolithiasis. 3. Cholelithiasis. 4. Suspect a few punctate stones layering within the bladder. 5. Additional findings as described above. Electronically signed by: Devyn Morillo M.D. 04/04/2017 7:36 AM Dictated Date/Time: 04/04/2017 7:29 AM The status of this report is Signed. Consultations: Urology (Ursula Willoughby PA-C) Medication Reconciliation New Medications: Phenazopyridine HCl (Phenazopyridine HCl) 200 Mg Tab 200 MG PO TID PRN for Bladder pain for 3 Days, #9 TAB Tamsulosin HCl (Tamsulosin HCl) 0.4 Mg Cap 0.4 MG PO QAM for 7 Days, #7 CAP Discharge Exam Subjective Pt evaluation today including: conversation w/ patient, conversation w/ family , physical exam, chart review, lab review, review of studies Pain: Moderate, R flank, RLQ PO Intake: NPO The patient was seen and examined this morning. Pt reports his pain is much better currently than it was when he came in. He is awaiting urological procedure today. His is present at bedside. He is very concerned about full admit vs observation status for insurance purposes. He denies any fevers, chills or sweats. Constitutional: No fever, No chills, No sweats ENT: No nasal symptoms, No trouble swallowing Respiratory: No shortness of breath, No dyspnea on exertion, No dyspnea at rest Cardiovascular: No chest pain, No palpitations Abdomen: + pain (RLQ, mild-moderate), No nausea, No vomiting, No diarrhea, No constipation Musculoskeletal: No joint pain, No muscle pain, No swelling Male : No dysuria, No urinary frequency, No hematuria Neurologic: No weakness, No numbness/tingling Endo: No fatigue Skin: No rash, No itch Objective Vital Signs Date Time Temp Pulse Resp B/P (MAP) Pulse Ox O2 Delivery O2 Flow Rate FiO2 04/05/17 07:24 37.0 60 16 110/67 (81) 97 Room Air 04/05/17 00:30 Room Air 04/04/17 23:13 37.0 64 16 91/50 (64) 94 Room Air 102/58 (73) 04/04/17 16:00 Room Air 04/04/17 15:00 36.5 61 20 104/64 (77) 96 Room Air Physical Exam General Appearance: WD/WN, no apparent distress Eyes: PERRL, EOMI ENT: hearing grossly normal, pharynx normal Neck: supple, no JVD Respiratory/Chest: lungs clear, normal breath sounds, no accessory muscle use Cardiovascular: regular rate, rhythm, no murmur Abdomen: normal bowel sounds, non tender, soft Extremities: non-tender, no pedal edema, no calf tenderness Neurologic/Psychiatric: alert, normal mood/affect, oriented x 3 Skin: normal color, warm/dry (Ursula Willoughby, REGINA) Hospital Course History of Present Illness Source: patient 56 y/o M Hx UC, GERD - developed acute and progressively severe R flank pain. Denies dysuria, fevers or rigors. On arrival to ER a CT was obtained revealing a 4mm obstructive stone in the mid R ureter with resultant hydroureteronephrosis. General Appearance: WD/WN, no apparent distress Head: normocephalic Eyes: normal inspection ENT: normal ENT inspection, pharynx normal Neck: supple, no JVD Respiratory/Chest: chest non-tender, lungs clear, normal breath sounds, no respiratory distress, no accessory muscle use Cardiovascular: regular rate, rhythm, no edema, no gallop, no JVD, no murmur, normal peripheral pulses Abdomen/GI: normal bowel sounds, + pertinent finding (R lat abdominal and flank pain) Back: + right CVA tenderness Extremities/Musculoskelatal: normal inspection, no calf tenderness, normal capillary refill Neurologic/Psych: frit burner II-XII nml as tested, no motor/sensory deficits, alert, normal mood/affect, normal reflexes, oriented x 3 Skin: normal color, warm/dry, no rash Hospital Course: 56 yo M with PMHx of ulcerative colitis, multiple R knee surgeries, GERD, who presents with a 4 mm obstructive R ureteral stone Obstructing R ureteral stone - Urology on board: Dr. Baker performed Cystoscopy, Right Ureteroscopy, Laser Lithotripsy, Basket Stone Extraction on 04/05 - pain control with nonsteroidals and opiates, aggressive IVF - will send home with flomax and pyridium, can take tylenol for analgesia. - straining all urine - Ancef on board prior to procedure Ulcerative Colitis - Holding Sulfasalazine and will resume after urology procedure as above. - No flares for many years - Follows with Dr. Wiseman as an outpatient, he prescribes him the sulfasalazine GERD -asymptomatic while on Omeprazole Full code - SCDs CODE STATUS: FULL CODE Disposition: Discharge to home likely within 24 hours after urological procedure. Total Time Spent: Greater than 30 minutes This includes examination of the patient, discharge planning, medication reconciliation, and communication with other providers. (Ursula Willoughby, REGINA) NEVA Physician Supervision Note: I interviewed and examined the patient. Discussed with Ursula Willoughby PAC and agree with findings and plan as documented in the note. Any exceptions or clarifications are listed here: None Patient was here with a 4 mm ureteral stone status post cystoscopy Laser Lithotripsy, Basket Stone Extraction on 04/[address] Baker, patient is well post procedure will be discharged with some pain medications and tamsulosin and follow-up with Dr. Baker as an outpatient. Documented By: Anup Wilkes (Anup Wilkes M.D.) Discharge Instructions Please refer to the electronic Patient Visit Report (Discharge Instructions) for additional information. (Ursula Willoughby PA-C) Follow-Up Follow up with your Primary Care Provider within 1 week. Follow up with urology within 1-2 weeks or on an as needed basis, Dr. Baker. (Ursula Willoughby PA-C) Additional Copies To Papito Wiseman M.D.
[2017-04-05 16:31] VITALS: BP 120/73; PULSE 58; TEMP 36.8; O2SAT 97
[2017-04-05 17:00] VITALS: BP 123/80; PULSE 54; TEMP 36.4; O2SAT 96
[2017-04-05 17:37] VITALS: BP 125/70; PULSE 57; TEMP 36.4; O2SAT 96
[2017-04-05] MEDS ORDERED: OXYC-57 PO ×2 (17:50→18:57)
[2017-04-05 17:51] VITALS: BP 125/70; PULSE 57; TEMP 36.4; O2SAT 96
[2017-04-06] MEDS ORDERED: CEFAZOLIN IV 2,000 MG/60 ML D5W IV ONE (06:00)
== END 2017-04-05 19:20 | disposition home or self-care (01) | DRG 669 ==
LOC: C.EDB 02:37 → C.MSN 06:17 → ENRESERV 07:13 → OBSVTOIN 04-05 09:41
PROVIDERS: ADMIT Internal Medicine; ATTEND Internal Medicine
PROC: 0TC68ZZ Extirpation of Matter from Right Ureter, Via Natural or Artificial Opening Endoscopic (ICD-10-PCS; principal; 2017-04-05 10:45)
DX: N13.2 Hydronephrosis with renal and ureteral calculous obstruction (principal); K51.90 Ulcerative colitis, unspecified, without complications; K21.9 Gastro-esophageal reflux disease without esophagitis; G43.909 Migraine, unspecified, not intractable, without status migrainosus; E78.00 Pure hypercholesterolemia, unspecified; Z79.899 Other long term (current) drug therapy

== ENCOUNTER → 2017-09-22 | Outpatient (CLI) | payer OTHER ==
[~2017-09-22] MED LIST: FLM4 PO; OXYC-57 PO; PHEN-1043 PO
--- NOTE | 2017-09-22 16:05 | DIAGNOSTIC IMAGING REPORT ---
CHEST 2 VIEWS ROUTINE CLINICAL HISTORY: 57 years-old Male presenting with Flu-like symptoms Rib pain COUGH. TECHNIQUE: PA and lateral views of the chest were obtained. COMPARISON: 11/10/2010. FINDINGS: Cardiomediastinal silhouette normal. Minimal opacity at the left lung base. No other focal opacity. No pleural effusion or pneumothorax. Osseous structures normal. Upper abdomen normal. IMPRESSION: 1. Minimal left basilar atelectasis. No convincing evidence of acute cardiopulmonary disease. Electronically signed by: Micky Hsu M.D. 09/22/2017 4:04 PM Dictated Date/Time: 09/22/2017 4:03 PM
== END | disposition home or self-care (01) ==
LOC: C.RADPV 15:51
PROVIDERS: ATTEND Family Medicine
DX: R05 Cough (principal); R68.89 Other general symptoms and signs; R07.81 Pleurodynia